=== PATIENT | female | born 1970 | race Hispanic/Latino ===

== ENCOUNTER 2017-06-05 23:06 | Emergency (ER) | payer OTHER ==
[~2017-06-05] VITALS: Ht 162.6 cm; Wt 104.3 kg
--- NOTE | 2017-06-06 00:11 | Diagnostic Imaging Report ---
HIP RIGHT 2-3 VW (+/- PELVIS), KNEE LEFT THREE VIEWS Comparison: None Clinical history: Status post fall with right hip and left knee pain Findings: Right hip: Indeterminate bone fragment along the right posterior acetabular wall. Joint spaces are intact. Left knee: Moderate tricompartmental degenerative changes with medial compartment joint space narrowing. No acute fracture or dislocation. Impression: 1. Bone fragment or ossification along the posterior acetabular wall, unclear if an os acetabuli or age indeterminate fracture. Consider CT as indicated. 2. Otherwise negative for acute fracture of the right hip or left knee. Signed by: Dr Pippa Zaidi MD on 06/06/2017 12:08 AM
--- NOTE | 2017-06-06 01:59 | Diagnostic Imaging Report ---
CT PELVIS WO Clinical history: Right hip pain status post fall. \S\EVAL ABNORMALITY SEEN ON PLAIN FILM \[id number] \S\[id number] \S\Y Technique: Volumetric CT scan of the pelvis was performed. No intravenous contrast was administered. Coronal, sagittal and axial images are generated from source data. Note that technical/IT difficulties resulted in a delay in interpretation. Comparison: None Findings: Visualized pelvis: Small fat-containing periumbilical hernia. Otherwise unremarkable noncontrast appearance. Bones: There is posterior right acetabular labral ossification corresponding to the abnormality on x-rays. No acute fracture or dislocation. Bilateral osteitis condensans ilii. Soft tissues: No acute abnormality. Impression: No acute fracture. Signed by: Dr Pippa Zaidi MD on 06/06/2017 1:55 AM
== END 2017-06-06 02:07 | disposition home or self-care (01) ==
LOC: ER 23:06
DX: S80.02XA Contusion of left knee, initial encounter (principal); S76.011A Strain of muscle, fascia and tendon of right hip, initial encounter; W01.0XXA Fall on same level from slipping, tripping and stumbling without subsequent striking against object, initial encounter; Y93.01 Activity, walking, marching and hiking; Y99.0 Civilian activity done for income or pay
CPT/HCPCS: 72192; 99283